=== PATIENT | male | born 1965 | race Caucasian/White ===

== ENCOUNTER 2017-07-31 06:27 | Emergency (ER) | payer BC ==
[~2017-07-31] VITALS: Ht 182.9 cm; Wt 108.2 kg
[2017-07-31 06:55] LABS: HEMATOCRIT 45.1 % (38.0-50.0); MCH 31.5 PG (29.0-34.0); MCHC 36.1 G/DL (30.0-36.0); MCV 87.1 FL (86-99); MEAN PLAT.VOLUME 9.6 uM^3 (9.0-12.4); PLATELET COUNT 174 K/uL (156-360); RBC DIS.WIDTH-CV 11.7 % (11.8-14.6); RBC DIS.WIDTH-SD 37.2 % (39-53); RED BLOOD COUNT 5.18 M/uL (4.00-5.50); WHITE BLOOD COUNT 6.3 K/uL (4.1-10.2)
[2017-07-31] MEDS ORDERED: DOXYCYCLINE HY100 MG PO (07:34)
[2017-07-31 07:37] LABS: ANION GAP 8 MEQ/L (2-14); CHLORIDE 102 MEQ/L (99-109); POTASSIUM 3.8 MEQ/L (3.7-5.4); SAMPLE HEMOLYSIS CHECK 0; SAMPLE ICTERIC CHECK 0; SAMPLE LIPEMIA CHECK 0; SODIUM 140 MEQ/L (136-147); TOTAL BILIRUBIN 0.4 MG/DL (0.0-1.0)
[2017-07-31 07:43] LABS: ALKALINE PHOSPHATASE 43 IU/L (3-129); GFR ESTIMATE (CALCULATED) > 59 mL/min/; GLUCOSE 146 mg/dL (70-99); UREA NITROGEN (BUN) 17 mg/dL (9-23)
[2017-07-31 08:08] LABS: LIPASE 14 U/L (1.0-51.0)
[2017-07-31 08:13] LABS: TROP-I INTERPRETATION NEGATIVE; TROPONIN-I 0.03 ng/mL (0.0-0.30)
[2017-07-31 09:52] LABS: ADD MIUA? NO; BILIRUBIN NEGATIVE; BLOOD NEGATIVE; COLOR YELLOW ((YELLOW)); GLUCOSE (STRIP) 50; KETONES NEGATIVE; LEUKOCYTES NEGATIVE; NITRITE NEGATIVE; PROTEIN (STRIP) NEGATIVE; SPECIFIC GRAVITY 1.016 (1.000-1.030); UCUL ADDED? NO; UROBILINOGEN 0.2 MG/DL (0.2-1.0)
[2017-07-31 10:40] VITALS: BP 143/108
== END 2017-07-31 10:40 | disposition home or self-care (01) ==
LOC: EME 06:27
DX: K21.9 Gastro-esophageal reflux disease without esophagitis (principal); K80.20 Calculus of gallbladder without cholecystitis without obstruction
CPT/HCPCS: 71020; 76705; 80053; 81003; 83690; 84484; 85027; 85379; 93005; 99281; 99285; J2405; J7030